=== PATIENT | female | born 1985 | race Caucasian/White ===

== ENCOUNTER 2016-09-26 15:28 | Emergency (ER) | payer SELFPAY ==
[2016-09-26 15:58] VITALS: BMI 33.2
[2016-09-26 16:01] VITALS: RESP 16
[2016-09-26] MEDS ORDERED: Sodium Chloride 0.9% 1,000 ML IV STA (16:10)
--- NOTE | 2016-09-26 16:37 | ED PDOC ---
Arrival/HPI - General Chief Complaint: Dizziness/Lightheaded Time Seen by Provider: 09/26/16 16:09 Historian: Patient - History of Present Illness Narrative History of Present Illness (Text): 09/26/16 16:35 31-year-old female presents today feeling weak. Patient states she was out all day today and only had a few things to eat. Patient states she developed a headache and has been feeling weak and nauseous. Patient states she has a history of headaches. Patient states the headache is the same as always located on the top of the head. No medications have been taken for pain at home. Patient states the headache has been gradually worsening over the past few hours. Denies chest pain or shortness of breath. Complaining of nausea no vomiting. No abdominal pain. No diarrhea or constipation. No other complaints 09/26/16 18:52 Patient's family at bedside now stating that the patient has been fasting, doing a vegan fast for mandaeism purposes. Past Medical History - Provider Review Nursing Documentation Reviewed: Yes - Travel History Have you recently traveled outside [place] w/in the past 3 mons?: No - Infectious Disease Hx of Infectious Diseases: None - Psychiatric Hx Substance Use: No - Anesthesia Hx Anesthesia: No Hx Anesthesia Reactions: No Hx Malignant Hyperthermia: No Family/Social History - Physician Review Nursing Documentation Reviewed: Yes Family/Social History: Unknown Family HX Smoking Status: Never Smoked Hx Alcohol Use: No Hx Substance Use: No Allergies/Home Meds Allergies/Adverse Reactions: Allergies No Known Allergies Allergy (Verified 09/26/16 15:58) Review of Systems - Review of Systems Constitutional: Fatigue. absent: Fevers Eyes: absent: Vision Changes, Photophobia, Eye Pain ENT: absent: Sore Throat Respiratory: absent: SOB, Cough Cardiovascular: absent: Chest Pain, Palpitations Gastrointestinal: Nausea. absent: Abdominal Pain, Constipation, Diarrhea, Vomiting Genitourinary Female: absent: Dysuria, Frequency, Hematuria Musculoskeletal: absent: Arthralgias, Back Pain, Neck Pain Skin: absent: Rash, Pruritis Neurological: Headache, Dizziness Psychiatric: absent: Anxiety, Depression Physical Exam Vital Signs Reviewed: Yes Vital Signs Temp Pulse Resp BP Pulse Ox 09/26/16 19:19 97.9 F 60 16 124/78 98 09/26/16 15:58 97.5 F L 64 16 134/88 100 Temperature: Afebrile Blood Pressure: Normal Pulse: Regular Respiratory Rate: Normal Appearance: Positive for: Well-Appearing, Non-Toxic, Comfortable Pain Distress: None Mental Status: Positive for: Alert and Oriented X 3 - Systems Exam Head: Present: Atraumatic Pupils: Present: PERRL Extroacular Muscles: Present: EOMI Mouth: Present: Moist Mucous Membranes Neck: Present: Normal Range of Motion, Paraspinal Tenderness. No: MIDLINE TENDERNESS Respiratory/Chest: Present: Clear to Auscultation, Good Air Exchange. No: Respiratory Distress, Accessory Muscle Use Cardiovascular: Present: Regular Rate and Rhythm, Normal S1, S2. No: Murmurs Abdomen: Present: Normal Bowel Sounds. No: Tenderness, Distention, Peritoneal Signs, Rebound, Guarding Back: Present: Normal Inspection. No: CVA Tenderness, Midline Tenderness Upper Extremity: Present: Normal Inspection Lower Extremity: Present: Normal Inspection Neurological: Present: GCS=15, Speech Normal Skin: Present: Warm, Dry, Normal Color. No: Rashes Psychiatric: Present: Alert, Oriented x 3 Medical Decision Making ED Course and Treatment: 09/26/16 16:39 Patient is nontoxic well appearing with stable vital signs presenting with dizziness and weakness ekg:NSR at 61b/m no st elevations CBC wnl CMP wnl Lipase wnl Urinalysis ketones, blood. pt currently menstrating; contaminated sample; many epithealials CAT scan head; IMPRESSION: No acute intracranial abnormality. Mild global parenchymal volume loss with frontal predominance, advanced for the patient's age. Patient reassessment:pt feeling much better. denies headaches, dizziness or weakness. Discussed all results with patient in depth. advised eating more food at home. more frequently. advised f/u with pmd and increase fluids. advised immediate return if symptoms worsen,persist or if new symptoms develop. Patient verbalizes understanding of discharge instructions and need for immediate followup. all aspects of this case were discussed the attending of record. Impression: dehydration, dizziness Increase fluids Follow up with primary care physician within the next 2 days Return immediately if symptoms worsen persist or if new symptoms develop - Lab Interpretations Lab Results: 09/26/16 17:06 09/26/16 17:06 Lab Results 09/26/16 18:50: Urine Color Yellow, Urine Appearance Clear, Urine pH 7.5, Ur Specific Meredith 1.020, Urine Protein Trace H, Urine Glucose (UA) Negative, Urine Ketones Trace H, Urine Blood Moderate H, Urine Nitrate Negative, Urine Bilirubin Negative, Urine Urobilinogen 0.2, Ur Leukocyte Esterase Trace H, Urine RBC 10 - 15, Urine WBC 1 - 3, Ur Epithelial Cells Many, Amorphous Sediment Few, Urine Bacteria Many, Urine Other Uyeast, Urine HCG, Qual Negative 09/26/16 17:06: WBC 4.3 L, RBC 4.60, Hgb 10.2 L, Hct 32.2 L, MCV 70.0 L, MCH 22.2 L, MCHC 31.7, RDW 20.4 H, Plt Count 295, Gran % 63.1, Lymph % (Auto) 30.2, [place] % (Auto) 6.3 H, Eos % (Auto) 0.2 L, Baso % (Auto) 0.2, Gran # 2.72, Lymph # 1.3, [place]man # 0.3, Eos # 0.0, Baso # 0.01, Sodium 141, Potassium 4.2, Chloride 105, Carbon Dioxide 24, Anion Gap 16, BUN 6 L, Creatinine 0.5, Est GFR ( Amer) > 60, Est GFR (Non-Af Amer) > 60, Random Glucose 95, Calcium 9.4, Total Bilirubin 0.7, AST 27, ALT 16, Alkaline Phosphatase 36 L, Total Protein 8.3, Albumin 4.5, Globulin 3.9, Albumin/Globulin Ratio 1.2, Lipase 93 - RAD Interpretation Radiology Orders: 09/26/16 16:09 CHEST PORTABLE [RAD] Stat 09/26/16 17:31 HEAD W/O CONTRAST [CT] Stat - Medication Orders Current Medication Orders: Discontinued Medications Acetaminophen (Tylenol 325mg Tab) 975 mg PO STAT STA Stop: 09/26/16 17:33 Last Admin: 09/26/16 17:41 Dose: 975 MG MAR Pain/Vitals Document 09/26/16 17:41 [facility] (Rec: 09/26/16 17:41 [id number]) Pain Reassessment Is This A Pain ReAssessment? No Sleep Is patient sleeping during reassessment? No Presence of Pain Presence of Pain Yes Pain Scale Used Pain Scale Used Numeric Location Pain Location Body Aircraft Accessories Mechanic Description Constant Intensity 6 Scale Used Numeric Sodium Chloride (Sodium Chloride 0.9%) 1,000 mls @ 999 mls/hr IV .Q1H1M STA Stop: 09/26/16 17:10 Last Admin: 09/26/16 17:11 Dose: 999 MLS/HR eMAR Start Stop Document 09/26/16 17:11 [facility] (Rec: 09/26/16 17:11 [id number]) Intravenous Solution Start Date 09/26/16 Start Time 17:11 Ondansetron HCl (Zofran Inj) 4 mg IVP STAT STA Stop: 09/26/16 16:18 Last Admin: 09/26/16 17:11 Dose: 4 MG IVP Administration Document 09/26/16 17:11 [facility] (Rec: 09/26/16 17:11 [id number]) Charges for Administration # of IVP Administrations 1 Disposition/Present on Arrival - Present on Arrival Any Indicators Present on Arrival: No History of DVT/PE: No History of Uncontrolled Diabetes: No Urinary Catheter: No History of Decub. Ulcer: No History Surgical Site Infection Following: None - Disposition Have Diagnosis and Disposition been Completed?: Yes Diagnosis: Dehydration, Dizziness Disposition: HOME/ ROUTINE Disposition Time: 19:01 Patient Plan: Discharge Condition: GOOD Discharge Instructions (ExitCare): Dehydration (ED) Additional Instructions: Increase fluids Follow up with primary care physician within the next 2 days Return immediately if symptoms worsen persist or if new symptoms develop Referrals: Jorge Isidro DO [Staff Provider] - Follow up with primary Forms: WORK NOTE
[2016-09-26 17:20] LABS: ADD MANUAL DIFF? NO
[2016-09-26 17:30] LABS: BASO # 0.01 K/mm3 (0.0-2.0); BASO % 0.2 % (0.0-3.0); EOS % 0.2 % (1.5-5.0); GRAN # 2.72 (1.4-6.5); GRAN % 63.1 % (50.0-68.0); HEMATOCRIT 32.2 % (36.0-48.0); LYMPH # 1.3 (1.2-3.4); LYMPH % 30.2 % (22.0-35.0); MEAN CORPUSCULAR HEMOGLOBIN 22.2 pg (25.0-35.0); MEAN CORPUSCULAR HGB CONC 31.7 g/dl (31.0-37.0); MONO # 0.3 (0.1-0.6); MONO % 6.3 % (1.0-6.0); PLATELET COUNT 295 10^3/uL (120.0-450.0); RED CELL DISTRIBUTION WIDTH 20.4 % (11.5-14.5); WHITE BLOOD COUNT 4.3 10^3/ul (4.5-11.0)
[2016-09-26 17:41] LABS: ALB/GLOB RATIO 1.2 (1.1-1.8); ALKALINE PHOSPHATASE 36 U/L (38-133); ALT/SGPT 16 U/L (7-56); AST/SGOT 27 U/L (15-39); BILIRUBIN,TOTAL 0.7 mg/dL (0.2-1.3); BLOOD UREA NITROGEN 6 mg/dL (7-21); CALCIUM 9.4 mg/dL (8.4-10.5); CARBON DIOXIDE 24 mmol/L (21-33); CHLORIDE 105 mmol/L (98-107); GFR AFRICAN-AMERICAN > 60; GLUCOSE,RANDOM 95 mg/dL (70-110); LIPASE 93 U/L (23-300); POTASSIUM 4.2 mmol/L (3.6-5.0); SODIUM 141 mmol/L (132-148); TOTAL PROTEIN 8.3 g/dL (5.8-8.3)
--- NOTE | 2016-09-26 18:19 | CT ---
PROCEDURE: CT HEAD WITHOUT CONTRAST. HISTORY: headache COMPARISON: None available. TECHNIQUE: Axial computed tomography images were obtained through the head/brain without intravenous contrast. Automatic exposure was use. Radiation dose: Total exam DLP = 774.23 mGy-cm. FINDINGS: HEMORRHAGE: No intracranial hemorrhage. BRAIN: Boyce-white matter differentiation is preserved. There is no mass, mass effect or abnormal extra-axial fluid collection. There is normal density in the larger dural venous sinuses. VENTRICLES: There is mild global parenchymal volume loss and proportionate enlargement of the ventricles and cortical sulci with frontal predominance, advanced for the patient's age. CALVARIUM: The skull base and calvarium are normal. PARANASAL SINUSES: Predominantly clear. MASTOID AIR CELLS: Predominantly clear. OTHER FINDINGS: None. IMPRESSION: No acute intracranial abnormality. Mild global parenchymal volume loss with frontal predominance, advanced for the patient's age.
[2016-09-26 18:55] LABS: PH,URINE 7.5 (4.7-8.0); URINE BILIRUBIN NEGATIVE (NEGATIVE); URINE BLOOD MODERATE (NEGATIVE); URINE GLUCOSE (UA) NEGATIVE (NEGATIVE); URINE KETONE TRACE mg/dL (NEGATIVE); URINE LEUKOCYTE ESTERASE TRACE Leu/uL (NEGATIVE); URINE PROTEIN TRACE mg/dL (<30 mg/dL); URINE UROBILINOGEN 0.2 E.U./dL (<1 E.U./dL)
[2016-09-26 18:56] LABS: URINE APPEARANCE CLEAR (CLEAR); URINE COLOR YELLOW (YELLOW)
[2016-09-26 19:09] LABS: URINE EPITHELIAL CELLS MANY /hpf (0-5)
[2016-09-26 19:10] LABS: URINE AMORPHOUS SEDIMENT FEW; URINE BACTERIA MANY (NEG)
[2016-09-26 19:19] VITALS: BP 124/78; PULSE 60; TEMP 97.9; O2SAT 98
--- NOTE | 2016-09-27 09:45 | RAD ---
HISTORY: fatigue COMPARISON: No prior. FINDINGS: LUNGS: No active pulmonary disease. PLEURA: No significant pleural effusion identified, no pneumothorax apparent. CARDIOVASCULAR: Normal. OSSEOUS STRUCTURES: No significant abnormalities. VISUALIZED UPPER ABDOMEN: Normal. OTHER FINDINGS: None. IMPRESSION: No active disease.
--- NOTE | 2016-09-27 14:31 | CARD ---
APPROVED REPORT EKG Measurement Heart [id number] KS [id number] <Conclusion> Normal sinus rhythm Normal ECG
== END 2016-09-26 19:19 | disposition home or self-care (01) ==
LOC: ED 15:28 → MERGE 15:28 → ED 19:19
DX: E86.0 Dehydration (principal); R42 Dizziness and giddiness
CPT/HCPCS: 70450; 71010; 80053; 81001; 82948; 83690; 84703; 85025; 87086; 93005; 96374; 99285; J2405; J7040

== ENCOUNTER 2017-02-05 16:50 | Emergency (ER) | payer OTHER ==
[2017-02-05 16:53] VITALS: BMI 23.1
[2017-02-05 16:56] VITALS: BP 121/83; PULSE 65; RESP 18; TEMP 97.9; O2SAT 98
--- NOTE | 2017-02-05 16:57 | ED PDOC ---
Arrival/HPI - General Chief Complaint: Lower Extremity Problem/Injury Time Seen by Provider: 02/05/17 16:57 Historian: Patient - History of Present Illness Narrative History of Present Illness (Text): 02/05/17 16:57 32 y/o female, no significant pmh, nkda, last tetanus doesn't remember, c/o rt. foot 1st digit great toe nail injury x 1 hour. Pt. stated that she accidentally kick on the suitcase with the bared foot. Pt. has no difficulty moving the toe, no numbness or tingling, no dizziness, no rash, no other medical or psychological complaints. Past Medical History - Provider Review Nursing Documentation Reviewed: Yes - Travel History If Yes, travel location?: [place] - Infectious Disease Hx of Infectious Diseases: None - Psychiatric Hx Substance Use: No - Surgical History Hx Section: Yes (x2) - Anesthesia Hx Anesthesia: Yes Hx Anesthesia Reactions: No Hx Malignant Hyperthermia: No Family/Social History - Physician Review Nursing Documentation Reviewed: Yes Family/Social History: Unknown Family HX Smoking Status: Never Smoked Hx Alcohol Use: No Hx Substance Use: No Allergies/Home Meds Allergies/Adverse Reactions: Allergies No Known Allergies Allergy (Verified 02/05/17 16:53) Review of Systems - Review of Systems Constitutional: absent: Fatigue, Fevers Eyes: absent: Vision Changes ENT: absent: Hearing Changes Respiratory: absent: SOB, Cough Cardiovascular: absent: Chest Pain Gastrointestinal: absent: Abdominal Pain, Nausea, Vomiting Musculoskeletal: Arthralgias. absent: Back Pain, Neck Pain, Joint Swelling, Myalgias Skin: absent: Rash, Pruritis, Skin Lesions Neurological: absent: Headache, Dizziness, Focal Weakness Physical Exam Vital Signs Reviewed: Yes Vital Signs Temp Pulse Resp BP Pulse Ox 02/05/17 16:55 97.9 F 65 18 121/83 98 Temperature: Afebrile Blood Pressure: Normal Pulse: Regular Respiratory Rate: Normal Appearance: Positive for: Well-Appearing, Non-Toxic, Comfortable Pain Distress: Mild Mental Status: Positive for: Alert and Oriented X 3 - Systems Exam Head: Present: Atraumatic, Normocephalic Pupils: Present: PERRL Extroacular Muscles: Present: EOMI Conjunctiva: Present: Normal Mouth: Present: Moist Mucous Membranes Neck: Present: Normal Range of Motion Respiratory/Chest: Present: Clear to Auscultation, Good Air Exchange. No: Respiratory Distress, Accessory Muscle Use Cardiovascular: Present: Regular Rate and Rhythm, Normal S1, S2. No: Murmurs Abdomen: Present: Normal Bowel Sounds. No: Tenderness, Distention, Peritoneal Signs Back: Present: Normal Inspection Upper Extremity: Present: Normal Inspection. No: Cyanosis, Edema Lower Extremity: Present: Normal Inspection, Other (Rt. foot 1st digit toe: there is detachment of the nail of the 1st digit great toe approx. 60 percent with the root still intact, no nailbed laceration or injury, no surrounding abrasion or laceration, FROM without limitation, sensation intact, motor 5/5, + DPPT pulses, capillary refill< 2 seconds, neurovascular intact. ). No: Edema Neurological: Present: GCS=15, Speech Normal, Motor Func Grossly Intact, Gait Normal, Memory Normal Skin: Present: Warm, Dry, Normal Color. No: Rashes Psychiatric: Present: Alert, Oriented x 3, Normal Insight, Normal Concentration Medical Decision Making ED Course and Treatment: 02/05/17 17:11 -xray -keflex/motrin -wound irrigate with saline, clean with betadine, xerofoam and gauze dressing, re attach the nail with the cling for protection which will eventually fall off. 02/05/17 18:08 -xray show no fracture or dislocation. -Discharge home with keflex, motrin, bacitracin ointment, crutches, keep the dressing dry and clean, follow up with your own pmd and structures technician within 2 days , return to the ER for any new or worsening signs or symptoms. - RAD Interpretation Radiology Orders: 02/05/17 17:06 FOOT RIGHT GREAT TOE ROUTINE [RAD] Stat no acute fracture or dislocation Sales Coordinator: Radiologist - Medication Orders Current Medication Orders: Discontinued Medications Cephalexin Monohydrate (Keflex) 500 mg PO STAT STA PRN Reason: Protocol Stop: 02/05/17 17:07 Last Admin: 02/05/17 17:20 Dose: 500 mg Ibuprofen (Motrin Tab) 600 mg PO STAT STA Stop: 02/05/17 17:07 Last Admin: 02/05/17 17:20 Dose: 600 mg Tetanus/Reduced Diphtheria/Acell Pertussis (Boostrix Vaccine Inj) 0.5 ml IM .ONCE ONE Stop: 02/05/17 17:07 Last Admin: 02/05/17 17:20 Dose: 0.5 ml - PA / CLUB WAITER/WAITRESS / Resident Statement MD/DO has reviewed & agrees with the documentation as recorded. Disposition/Present on Arrival - Present on Arrival Any Indicators Present on Arrival: No History of DVT/PE: No History of Uncontrolled Diabetes: No Urinary Catheter: No History of Decub. Ulcer: No History Surgical Site Infection Following: None - Disposition Have Diagnosis and Disposition been Completed?: Yes Diagnosis: Injury of nail, Toe injury Disposition: HOME/ ROUTINE Disposition Time: 17:13 Patient Plan: Discharge Condition: GOOD Additional Instructions: -Discharge home with keflex, motrin, bacitracin ointment, crutches, keep the dressing dry and clean, follow up with your own pmd and structures technician within 2 days , return to the ER for any new or worsening signs or symptoms. Prescriptions: Bacitracin OINT 1 applic TP BID #15 g Cephalexin [cephalexin] 500 mg PO TID #30 cap Ibuprofen [Motrin Tab] 600 mg PO QID PRN #30 tab PRN Reason: Other Referrals: Lloyd Mcdonald DPM [Staff Provider] - Follow up with primary [facility] [Outside] - Follow up with primary Forms: [facility] (Turkmen), WORK NOTE
[2017-02-05] MEDS ORDERED: TDAP Vaccine 0.5 mL Syr IM ONE (17:06)
--- NOTE | 2017-02-05 18:47 | RAD ---
PROCEDURE: Radiographs of the right great toe. TECHNIQUE:: AP radiograph of the right foot, with oblique and lateral view of the right great toe. COMPARISON: None available. FINDINGS: BONES: Unremarkable right 1st digit without acute displaced fracture identified. Remainder of the visualized osseous structures appear intact. Appearance suggests toenail injury of the 1st digit. JOINTS: No dislocation. SOFT TISSUES: Soft tissue swelling of the 1st digit. No evidence of radiopaque foreign body. OTHER FINDINGS: None. IMPRESSION: Soft tissue swelling of the 1st digit. Appearance suggests toenail injury; correlate with physical exam. No acute displaced fracture or dislocation identified.
== END 2017-02-05 18:13 | disposition home or self-care (01) ==
LOC: ED 16:50
DX: S99.921A Unspecified injury of right foot, initial encounter (principal); W22.8XXA Striking against or struck by other objects, initial encounter; Z23 Encounter for immunization

== ENCOUNTER 2017-02-07 17:18 | Emergency (ER) | payer OTHER ==
[2017-02-07 17:19] VITALS: BMI 23.1
--- NOTE | 2017-02-07 17:24 | ED PDOC ---
Arrival/HPI - General Time Seen by Provider: 02/07/17 17:20 Historian: Patient - History of Present Illness Narrative History of Present Illness (Text): 02/07/17 17:20 32 y/o female, here for the wound check and dressing change of the nail injury that happened about several days ago. She was seen here which xray show no acute findings, unable to see the physical therapy assistant instructor today, no fever or chills, no numbness or tingling, no other medical or psychological complaints. Past Medical History - Provider Review Nursing Documentation Reviewed: Yes - Infectious Disease Hx of Infectious Diseases: None - Psychiatric Hx Substance Use: No - Surgical History Hx Section: Yes (x2) - Anesthesia Hx Anesthesia: Yes Hx Anesthesia Reactions: No Hx Malignant Hyperthermia: No Family/Social History - Physician Review Nursing Documentation Reviewed: Yes Family/Social History: Unknown Family HX Smoking Status: Never Smoked Hx Alcohol Use: No Hx Substance Use: No Allergies/Home Meds Allergies/Adverse Reactions: Allergies No Known Allergies Allergy (Verified 02/05/17 16:53) Review of Systems - Review of Systems Constitutional: absent: Fatigue, Fevers Eyes: absent: Vision Changes ENT: absent: Hearing Changes Respiratory: absent: SOB, Cough Cardiovascular: absent: Chest Pain Gastrointestinal: absent: Abdominal Pain, Diarrhea, Nausea, Vomiting Skin: absent: Rash, Pruritis Neurological: absent: Headache, Dizziness, Focal Weakness Physical Exam Vital Signs Reviewed: Yes Vital Signs Temp Pulse Resp BP Pulse Ox 02/07/17 17:26 98.6 F 71 15 120/76 100 Temperature: Afebrile Blood Pressure: Normal Pulse: Regular Respiratory Rate: Normal Appearance: Positive for: Well-Appearing, Non-Toxic, Comfortable Pain Distress: Mild Mental Status: Positive for: Alert and Oriented X 3 - Systems Exam Head: Present: Atraumatic, Normocephalic Pupils: Present: PERRL Extroacular Muscles: Present: EOMI Conjunctiva: Present: Normal Mouth: Present: Moist Mucous Membranes Neck: Present: Normal Range of Motion Respiratory/Chest: Present: Clear to Auscultation, Good Air Exchange. No: Respiratory Distress, Accessory Muscle Use Cardiovascular: Present: Regular Rate and Rhythm, Normal S1, S2. No: Murmurs Abdomen: Present: Normal Bowel Sounds. No: Tenderness, Distention, Peritoneal Signs Back: Present: Normal Inspection Upper Extremity: Present: Normal Inspection. No: Cyanosis, Edema Lower Extremity: Present: Normal Inspection, Other (Rt. toe: visible is completely reattached, wound healing well and dry, no cellulitis or streaking, no ulcers, FROM without limitation, sensation intact, motor 5/5, +DPPT pulses, no signs of infection. ). No: Edema Neurological: Present: GCS=15, Speech Normal, Motor Func Grossly Intact, Gait Normal, Memory Normal Skin: Present: Warm, Dry, Normal Color. No: Rashes Psychiatric: Present: Alert, Oriented x 3, Normal Insight, Normal Concentration Medical Decision Making ED Course and Treatment: 02/07/17 17:24 -old dressing removed, irrigated with normal saline, clean with betadine, gauze dressing, cling. -Discharge home with education on follow up with your own pmd and physical therapy assistant instructor within 2 days, return to the ER for any new or worsening signs or symptoms. - PA / SAFETY ENGINEER / Resident Statement MD/DO has reviewed & agrees with the documentation as recorded. Disposition/Present on Arrival - Present on Arrival Any Indicators Present on Arrival: No History of DVT/PE: No History of Uncontrolled Diabetes: No Urinary Catheter: No History of Decub. Ulcer: No History Surgical Site Infection Following: None - Disposition Have Diagnosis and Disposition been Completed?: Yes Diagnosis: Visit for wound check, Dressing change Disposition: HOME/ ROUTINE Disposition Time: 17:27 Patient Plan: Discharge Patient Problems: Current Active Problems Problem Status Onset Visit for wound check Acute Dressing change Acute Condition: GOOD Additional Instructions: -Discharge home with education on follow up with your own pmd and physical therapy assistant instructor within 2 days, return to the ER for any new or worsening signs or symptoms. Referrals: Lloyd Mcdonald DPM [Staff Provider] - Follow up with primary Forms: WORK NOTE
[2017-02-07 17:29] VITALS: BP 120/76; PULSE 71; RESP 15; TEMP 98.6; O2SAT 100
== END 2017-02-07 17:56 | disposition home or self-care (01) ==
LOC: ED 17:18
DX: Z48.01 Encounter for change or removal of surgical wound dressing (principal)